=== PATIENT | male | born 1975 | race Caucasian/White ===

== ENCOUNTER 2017-01-15 16:22 | Outpatient (CLI) | payer OTHER ==
--- NOTE | 2017-01-15 16:43 | Diagnostic Imaging Report ---
[facility] [address] [facility].[address] [address] Report Submission Date: Jan 15, 2017 4:40:45 PM CDT Patient Study Name: BRIAN SALOMON Date: Jan 15, 2017 4:25:04 PM CDT Modality Type: CR Gender: M Description: SPINE : 73 Institution: [facility] Physician: ALBERTA HUNT - JOSE RAMON Examination: Plain film lumbar spine History: Back discomfort Findings: 3 views of the lumbar spine demonstrate normal height. Sacralization of L5. No anterior compression. No soft tissue abnormalities. Impression: No compression deformity. If experiencing neurologic symptoms, recommend obtaining MRI. Electronically signed on Jan 15, 2017 4:40:45 PM CDT by: Augustine CHOWDHURY
== END 2017-01-15 16:23 ==
LOC: RAD 16:22
PROVIDERS: ATTEND Family Medicine
DX: M54.42 Lumbago with sciatica, left side (principal)
CPT/HCPCS: 72100

== ENCOUNTER 2018-05-07 10:41 | Outpatient (CLI) | payer OTHER ==
[2018-05-07 12:33] LABS: eGFR (Non-African) > 60
== END 2018-05-07 10:42 ==
LOC: LAB 10:41
PROVIDERS: ATTEND Family Medicine
DX: Z00.00 Encounter for general adult medical examination without abnormal findings (principal); Z13.1 Encounter for screening for diabetes mellitus
CPT/HCPCS: 36415; 80053; 80061; 83036

== ENCOUNTER 2019-06-26 12:39 | Outpatient (CLI) | payer OTHER ==
[2019-06-26 12:56] LABS: APPEARANCE,URINE CLEAR (CLEAR); COLOR,URINE YELLOW (YELLOW)
[2019-06-26 12:57] LABS: OCCULT BLOOD,URINE NEGATIVE (NEGATIVE); PH URINE 5.5 (5.0 - 8.0); UROBILINOGEN URINE 0.2 Eu (0.2-1.0)
[2019-06-26 13:53] LABS: eGFR (Non-African) > 60
[2019-06-26 13:54] LABS: MAGNESIUM 1.9 mIU/l (1.6-2.3)
[2019-06-26 16:52] LABS: HDL 21 mg/dL (>40)
== END 2019-06-26 12:44 ==
LOC: LAB 12:39
PROVIDERS: ATTEND Family Medicine
DX: Z13.220 Encounter for screening for lipoid disorders (principal); R73.9 Hyperglycemia, unspecified; R25.2 Cramp and spasm
CPT/HCPCS: 36415; 80048; 80061; 81002; 83036; 83735